=== PATIENT | male | born 1950 | race Caucasian/White ===

== ENCOUNTER 2016-09-03 07:50 | Inpatient (IN) ==
[2016-09-03] MEDS ORDERED: Acetaminophen 325 MG TABLET PO PRN (10:05)
[2016-09-03] MEDS ORDERED: Naloxone 0.4 MG/ML INJ IVP PRN (10:05)
[2016-09-03] MEDS ORDERED: Ondansetron ODT 4 MG TAB.RAPDIS SL PRN (10:05)
[2016-09-03 10:17] LABS: Hemoglobin 13.3 g/dL (12.9-16.9); Mean Corpuscular HGB Conc 33.3 g/dL (31.6-35.5); Mean Corpuscular Hemoglobin 30.2 pg (28.0-33.3); Mean Corpuscular Volume 90.7 fL (83.0-100.0); Mean Platelet Volume 9.4 fL (9.4-12.4); Platelet Count 306 K/mcL (140-400); Red Blood Count 4.41 M/mcL (4.19-5.50); Red Cell Distribution Width 12.4 % (11.5-14.5)
[2016-09-03 10:29] LABS: BUN/Creatinine Ratio 21 (6-26); Blood Urea Nitrogen 24 mg/dL (8-26); Calcium 9.8 mg/dL (8.6-10.8); Carbon Dioxide 29 mEq/L (19-29); Chloride 100 mEq/L (98-109); Glucose 107 mg/dL (70-99); Osmolality,Calculated 293 (280-300); Potassium 3.4 mEq/L (3.5-4.5); Sodium 139 mEq/L (136-145); eGFR For African Americans > 60 (> 60); eGFR For Non-African Americans > 60 (> 60)
--- NOTE | 2016-09-03 10:45 | History & Physical Report ---
Date of Encounter: 09/03/16 Time of Encounter: 09:30 24 Hour HP Update - Instructions Instructions: If the History and Physical is less than 30 days old and was completed prior to A.M. admission and or procedure and has NOT been updated on calendar day of procedure please complete this update prior to performing procedure. - Update Patient reports changes in Medical Condition: No Changes in examination, assessment, or condition: No Changes in Medication: No Preop tests/diagnostics Reviewed: Yes Additions to current History and Physical: Patient admitted for rhythmol initiation. - Pre-Operative Checklist Preoperative Checklist Indicated: No Prophylactic Antibiotic Ordered: No Home Medications Include Beta Jose: No Beta Jose Taken Today (Day of Surgery): No Beta Jose Taken Yesterday (Day Prior to Surgery): No Is VTE Prophylaxis Indicated?: NO
--- NOTE | 2016-09-03 10:49 | Event Note ---
Date of Encounter: 09/03/16 Time of Encounter: 09:30 - Cardiology Event Note Patient direct admission for rhythmol initiation for paroxysmal atrial fibrillation. Patient states he has not missed any eliquis for the past 30 days. Patient admits to missing eliquis from August 01- due to dental procedure. Patient reports he started back on eliquis on August 03 in the evening. Patient denies any medical history changes or medication changes since being seen in office. Stress test reviewed from 06/2014 with gated EF 62%, fixed basal to mid inferior defect with artifact. Stress negative for ischemia or infarct. Echo 2016 with LVEF 65%, mild concentric left ventricular hypertrophy, all cisneros with normal motion. ECG performed and patient currently sinus bradycardia, HR 53. QRS noted to be 101ms. Lab work reviewed, creatinine about basleine. Plan for patient to start rhythmol 150mg [id number]. Medication house checked with pharmacy and noted to be $28/month. Patient and state that the cost is affordable for them. Will start rhythmol, Will continue to monitor.
--- NOTE | 2016-09-03 16:14 | Electrocardiograph Report ---
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
[2016-09-03] MEDS: APIXABAN 5 MG TABLET PO SCH (20:49)
[2016-09-03] MEDS ORDERED: Venlafaxine XR (24 HR) 75 MG CAP.ER.24H PO SCH (21:00)
[2016-09-04 06:12] LABS: BUN/Creatinine Ratio 14 (6-26); Blood Urea Nitrogen 17 mg/dL (8-26); Calcium 9.2 mg/dL (8.6-10.8); Carbon Dioxide 33 mEq/L (19-29); Chloride 101 mEq/L (98-109); Glucose 98 mg/dL (70-99); Osmolality,Calculated 296 (280-300); Potassium 3.5 mEq/L (3.5-4.5); Sodium 142 mEq/L (136-145); eGFR For African Americans > 60 (> 60); eGFR For Non-African Americans 59 (> 60)
[2016-09-04] MEDS: APIXABAN 5 MG TABLET PO SCH ×2 (08:39→22:02)
[2016-09-04] MEDS: Multivit/Ca/Min/Fe/FA 1 TAB TABLET PO SCH (08:40)
[2016-09-04] MEDS: Losartan/HCTZ 50-12.5 TABLET PO SCH (08:40)
[2016-09-04] MEDS ORDERED: Diltiazem CD (24hr) 120 MG CAPSULE PO SCH (09:00)
--- NOTE | 2016-09-04 10:46 | Cardiology Consult Note ---
Date of Encounter: 09/04/16 Time of Encounter: 08:30 Assessment and Plan (1) Paroxysmal atrial fibrillation Current Visit: Yes Status: Chronic Per EP: -Known symptomatic PAF, follows with Dr.John Live. -Patient direct admission for rhythmol initiation. -Patient started on rhythmol 150mg [id number]. Has received 3 doses. -Patient on cardizem CD 120mg daily. -Patient anti-coagulated with eliquis. -[id number] score 2 (age and HTN). Has not missed any doses of eliquis in the past 30days. -Patient currently SR. Telemetry reviewed with average HR 74, sinus rhythm for previous 12 hours. -Pateint denies palpitations. -Will continue to monitor. (2) Encounter for monitoring anti-arrhythmic therapy Current Visit: Yes Status: Acute Per EP: -Patient started on rhythmol 150mg [id number]. Patient has received 3 total doses. -ECG yesterday with SB, HR 53. QRS 101ms. -ECG today SR, HR 73. QRS 109ms. -Will receive 6 doses by tomorrow morning. -ECG ordered for tomorrow morning. -Recommend continuation of rhythmol therapy. -Recommend checking ECG in am. IF QRS less than 120ms or less than 25% change from baseline, patient may be discharged tomorrow. -EP will sign off and will follow in outpatient setting. -General cardiology will follow while inpatient. Discussion w patient/family: The assessment and plan as outlined above was discussed with the patient and/or family members who expressed understanding and agreement. All questions were answered. Thank you for involving us in the care of your patient. Please call with any questions. Discussed and reviewed with Dr.John Live. History of Present Illness Consult date: 09/04/16 Requesting physician: Jose Marin Consult reason: PAF/ anti-arrythmic Chief complaint: anti arrythmic History of present illness: EP Consult: Mr. Patel is a 66 year old male with a relevant past medical history of HTN , hyperlipidemia, depression, and paroxysmal atrial fibrillation. Patient presented to [facility] yesterday for direct admission for anti-arrythmic initiation. Patient follows with Dr.John Live in cardiology office. Arrangements were made for patient to start rhythmol for paroxysmal atrial fibrillation. WHen patient was admitted, patient was in sinus rhyhthm. Patient states he can tell when he is in atrial fibrillation. Patient denies current chest pain, shortness of breath, or palpitations. Past Med Surg Social Fam HX - Past Medical History Attestation: Yes The following information was validated with the patient. Source: patient, old records reviewed, obtained from family Medical history: arthritis, atrial fibrillation, hyperlipidemia, hypertension Psychiatric history: anxiety, depression - Social History Smoking Status: Former smoker Smokeless Tobacco Status: No Alcohol use: none Drug use: none - Family History Mother Living Status: Age at : 63 Hx Family Cardiac Disorders: Yes Hx Family Endocrine Disorder: Yes Hx Family Musculoskeletal Disorders: Yes Medications and Allergies Apixaban [Eliquis] 5 mg PO BID 09/03/16 [History] Diltiazem CD (24hr) [Cardizem CD] 120 mg PO DAILY 09/03/16 [History] Losartan/HCTZ [Hyzaar 50-12.5 Tablet] 1 each PO DAILY 09/03/16 [History] Simvastatin [Zocor] 20 mg PO HS 09/03/16 [History] Venlafaxine HCl [Venlafaxine HCl ER] 75 mg PO DAILY 09/03/16 [History] Allergies Penicillins Allergy (Mild, Verified 09/03/16 09:26) Rash All Systems Review: A 10-system review of systems was performed and is negative for pertinent findings except as documented above in the HPI. - Cardiovascular Cardiovascular: as per HPI, irregular heart rhythm (Not currently irregular) Physical Examination Vital Signs, Last 4 Hours Temp Pulse Resp BP Pulse Ox 09/04/16 07:14 98.1 F 83 15 148/95 96 General: Conversant, No Apparent Distress HEENT: Atraumatic, Normocephaly, Mucus Membranes Moist Neck: No JVD, Normal carotid pulses Cardiac: Reg Rate and Rhythm, Normal S1 and S2, No Murmur Lungs: Normal Breath Sounds, No Wheeze, Rales, Rhonchi Neuro: Alert and responsive, No focal deficits noted Abdomen: Soft, Non-Tender Skin: No rashes noted on visualized skin Musculoskeletal: No Chest Wall Tenderness Extremities: No Clubbing, No Cyanosis, No Edema, Normal Pulses Results 09/03/16 10:07 09/04/16 04:49 Lab Results Active Medications Acetaminophen (Tylenol) 650 mg PO Q6HR PRN PRN Reason: Mild Pain (1-3) Stop: 03/05/17 10:06 Apixaban (Eliquis) 5 mg PO BID [facility] Stop: 03/05/17 21:01 Last Admin: 09/04/16 08:39 Dose: 5 mg Diltiazem HCl (Cardizem Cd) 120 mg PO DAILY [facility] Stop: 03/06/17 10:01 HCTZ/Losartan Potassium (Hyzaar 50/12.5) 1 each PO DAILY [facility]AY Stop: 03/06/17 09:01 Last Admin: 09/04/16 08:40 Dose: 1 each Multivitamins/Calcium (Thera M Plus) 1 tab PO DAILY RAY PRN Reason: Protocol Stop: 03/06/17 09:01 Last Admin: 09/04/16 08:40 Dose: 1 tab Naloxone HCl (Narcan) 0.4 mg IVP Q2MIN PRN PRN Reason: Opioid Reversal Stop: 03/05/17 10:06 Ondansetron HCl (Zofran Odt) 4 mg SL Q8HR PRN PRN Reason: Nausea And Vomiting Stop: 03/05/17 10:06 Propafenone HCl (Rhythmol) 150 mg PO Q8HR RAY Stop: 03/05/17 14:01 Last Admin: 09/04/16 08:38 Dose: 150 mg Simvastatin (Zocor) 10 mg PO HS RAY PRN Reason: Protocol Stop: 03/05/17 21:01 Last Admin: 09/03/16 20:48 Dose: 10 mg Venlafaxine HCl (Effexor Xr) 75 mg PO HS [facility] Stop: 03/05/17 21:01 Laboratory Tests 09/03/16 09/03/16 09/04/16 10:07 10:07 04:49 Hgb 13.3 Potassium 3.4 L 3.5 Creatinine 1.16 1.23 - Imaging and Cardiology Stress Test: report reviewed Echo: report reviewed - EKG Interpretation EKG results cardiology: personally reviewed (ECG today with sinus rhythm, HR 73. QRS 109ms.), other (Telemetry reviewed with average HR 74, sinus rhythm. PACs noted.) Consult Discharge Plan - Plan Referrals: Quentin Taylor DO [Primary Care Provider] - 09/12/16 10:00 am
[2016-09-04] MEDS: Diltiazem CD (24hr) 120 MG CAPSULE PO SCH (12:03)
[2016-09-04] MEDS ORDERED: Venlafaxine XR (24 HR) 75 MG CAP.ER.24H PO SCH (21:00)
[2016-09-05 07:13] VITALS: BP 122/92
--- NOTE | 2016-09-05 09:13 | Discharge Summary ---
Date of Encounter: 09/05/16 Time of Encounter: 09:00 - Discharge Diagnosis (1) Paroxysmal atrial fibrillation Priority: Primary Status: Chronic Comments: Known PAF. Admisison for rhythmol inititation. (2) Encounter for monitoring anti-arrhythmic therapy Priority: Secondary Status: Acute Comments: Admission for rhythmol initiation. - Discharge Medications Prescriptions: Propafenone [Rhythmol] 150 mg PO Q8HR #90 tablet Simvastatin [Zocor] 10 mg PO HS #30 tablet Home Medications: Apixaban [Eliquis] 5 mg PO BID 09/03/16 [History] Diltiazem CD (24hr) [Cardizem CD] 120 mg PO DAILY 09/03/16 [History] Losartan/HCTZ [Hyzaar 50-12.5 Tablet] 1 each PO DAILY 09/03/16 [History] Venlafaxine HCl [Venlafaxine HCl ER] 75 mg PO DAILY 09/03/16 [History] Multivitamin [One Daily Essential] 1 each PO DAILY 09/04/16 [History] Propafenone [Rhythmol] 150 mg PO Q8HR #90 tablet 09/05/16 [Rx] Simvastatin [Zocor] 10 mg PO HS #30 tablet 09/05/16 [Rx] Allergies/Adverse Reactions: Allergies Penicillins Allergy (Mild, Verified 09/03/16 09:26) Rash Procedures/tests Complete & Pending: Procedures Performed prior 72 hours Category Date Time Status ECG 12 lead ECG [ECG] AM 0600 Y 09/04/16 06:00 Completed ECG 12 lead ECG [ECG] AM 0600 Y 09/05/16 06:00 Ordered ECG 12 lead ECG [ECG] AM 0600 Y 09/06/16 06:00 Ordered ECG 12 lead ECG [ECG] Stat Y 09/03/16 09:22 Completed Date of admission: 09/03/16 08:46 Primary care physician: Quentin Taylor Consults: 09/04/16 10:49 Consult to Electrophysiology (EP) [CONS] Routine Consulting Provider: Electrophysiology Rashmi Reason for Consult: antiarrhythmic therapy initiation and monitoring. Call Completed: Yes Discharging clinician: Ewa Stack Anticipated date of discharge: 09/05/16 - Patient Status Disposition: Home, Self-Care Condition: Good Functional capacity at discharge: independent ambulation Overall status at discharge: patient is back to baseline - Discharge Instructions Follow Up With: Quentin Taylor DO [Primary Care Provider] - 09/12/16 10:00 am - Diet and Activity Activity: increase activity as tolerated Diet: advance to your usual diet - Hospital Course Hospital course: Mr. Patel is a 66 year old male with known history of paroxysmal atrial fibrillation. Patient admitted for rhythmol initiation. Patient has received 6 total doses of rhythmol. ECG today with sinus bradycardia, HR 57. QRS 101 ms. Telemetry reviewed with average HR previous 12 hours noted to be 66. No significant events noted. Patient has remained sinus rhythm since admission. Patient is on eliquis for anticoagulation. Patient is being prepped for discharge home today in stable condition. - Time Spent with Patient Total time spent providing and/or coordinating discharge services: Less than 30 minutes Physical Examination Vital Signs, Last 4 Hours Temp Pulse Resp BP Pulse Ox 09/05/16 07:00 98.2 F 65 17 122/92 97 General: Conversant, No Apparent Distress HEENT: Atraumatic, Normocephaly, Mucus Membranes Moist Neck: No JVD, Normal carotid pulses Cardiac: Reg Rate and Rhythm, Normal S1 and S2, No Murmur Lungs: Normal Breath Sounds, No Wheeze, Rales, Rhonchi Neuro: Alert and responsive, No focal deficits noted Abdomen: Soft, Non-Tender Skin: No rashes noted on visualized skin Musculoskeletal: No Chest Wall Tenderness Extremities: No Clubbing, No Cyanosis, No Edema, Normal Pulses - VTE Reasons for not Prescribing Prophylaxis: Not indicated-Anticoagulated or INR therapeutic Documentation of Mechanical Device: Intermittent pneumatic compression device
[2016-09-05] MEDS: Multivit/Ca/Min/Fe/FA 1 TAB TABLET PO SCH (09:27)
[2016-09-05] MEDS: Losartan/HCTZ 50-12.5 TABLET PO SCH (09:27)
[2016-09-05] MEDS: APIXABAN 5 MG TABLET PO SCH (09:27)
[2016-09-05] MEDS: Diltiazem CD (24hr) 120 MG CAPSULE PO SCH (09:28)
--- NOTE | 2016-09-05 15:38 | Electrocardiograph Report ---
[address] [place], [place] [address] Test Date: 2016-09-05 Pat Name: Uli Patel Department: 111 Room: 2NE27 Gender: M [employer] Real Estate: JOANIE : 1950 Requested By: Ewa Stack Order Number: [id number] Reading MD: Lauri Patel MD Measurements Intervals [place] Rate: 57 P: 57 UT: 173 QRS: -4 QRSD: 101 T: 7 QT: 428 QTc: 422 Interpretive Statements SINUS BRADYCARDIA Electronically Signed On 09-05-2016 15:37:27 EDT by Lauri Patel MD
== END 2016-09-05 11:23 | disposition home or self-care (01) | DRG 310 ==
LOC: 2NENU 08:46
PROVIDERS: ADMIT Internal Medicine Cardiovascular Disease; ATTEND Internal Medicine Cardiovascular Disease

== ENCOUNTER 2018-11-23 09:55 | Inpatient (IN) ==
[2018-11-23] MEDS ORDERED: Aspirin 81 MG TAB.CHEW PO ONE (10:01)
[2018-11-23 10:25] LABS: Basophils % 0.5 %; Eosinophils # 0.4 K/mcL (0.0-0.6); Eosinophils % 4.7 %; Hematocrit 41.5 % (37.5-50.1); Hemoglobin 13.6 g/dL (12.9-16.9); Immature Granulocytes % 0.1 % (0-4); Lymphocytes # 1.3 K/mcL (0.6-4.6); Lymphocytes % 15.4 %; Mean Corpuscular HGB Conc 32.8 g/dL (31.6-35.5); Mean Corpuscular Hemoglobin 30.5 pg (28.0-33.3); Mean Platelet Volume 9.8 fL (9.4-12.4); Monocytes # 1.2 K/mcL (0.0-1.3); Monocytes % 13.5 %; Neutrophils # 5.6 K/mcL (1.6-8.9); Platelet Count 303 K/mcL (140-400); Red Blood Count 4.46 M/mcL (4.19-5.50); Segmented Neutrophils % 65.8 %; White Blood Count 8.5 K/mcL (4.3-11.1)
[2018-11-23 10:50] LABS: BUN/Creatinine Ratio 14 (6-26); Blood Urea Nitrogen 16 mg/dL (8-23); Calcium 9.3 mg/dL (8.6-10.3); Carbon Dioxide 27 mEq/L (23-29); Chloride 103 mEq/L (98-107); Glucose 111 mg/dL (70-105); Osmolality,Calculated 286 (280-300); Potassium 4.1 mEq/L (3.5-5.1); Sodium 137 mEq/L (136-145); Troponin I < 0.03 ng/mL (< 0.04); eGFR For African Americans > 60 (> 60); eGFR For Non-African Americans > 60 (> 60)
[2018-11-23] MEDS ORDERED: Naloxone 0.4 MG/ML INJ IVP PRN (13:41)
[2018-11-23] MEDS ORDERED: Ondansetron 4 MG/2 ML VIAL IVP PRN (13:41)
[2018-11-23] MEDS ORDERED: Acetaminophen 325 MG TABLET PO PRN (13:41)
[2018-11-23] MEDS: Nitroglycerin 0.4 MG TAB.SUBL SL PRN (17:18)
[2018-11-23] MEDS: Venlafaxine XR (24 HR) 75 MG CAP.ER.24H PO SCH (20:41)
[2018-11-23] MEDS: Apixaban 5 MG TABLET PO SCH (20:41)
[2018-11-23 22:05] LABS: Bilirubin,Urine Negative (Negative); Blood,Urine Negative (Negative); Clarity,Urine Clear (Clear); Color,Urine Yellow (Yellow); Glucose,Urine (UA) Normal (Normal); Ketones,Urine Negative (Negative); Leukocyte Esterase,Urine Negative (Negative); Nitrite,Urine Negative (Negative); PH,Urine 6.5 pH Units (5.0-8.0); Protein,Urine Negative (Neg-Trace); Specific Gravity,Urine 1.009 (1.010-1.025); Urobilinogen,Urine Normal (Normal)
[2018-11-23 22:17] LABS: Amphetamine Screen,Urine Negative ng/mL (Cutoff=1000); Barbiturate Screen,Urine Negative ng/mL (Cutoff=200); Benzodiazepines Screen,Urine Negative ng/mL (Cutoff=200); Cannabinoid Screen,Urine Negative ng/mL (Cutoff = 50); Cocaine Screen,Urine Negative ng/mL (Cutoff= 300); Opiate Screen,Urine Negative ng/mL (Cutoff=300); Phencyclidine Screen,Urine Negative ng/mL (Cutoff=25)
[2018-11-24 02:25] LABS: Basophils # 0.1 K/mcL (0.0-0.2); Basophils % 0.6 %; Eosinophils # 0.5 K/mcL (0.0-0.6); Eosinophils % 5.6 %; Hematocrit 40.7 % (37.5-50.1); Hemoglobin 13.6 g/dL (12.9-16.9); Immature Granulocytes % 0.4 % (0-4); Lymphocytes # 1.5 K/mcL (0.6-4.6); Lymphocytes % 18.7 %; Mean Corpuscular HGB Conc 33.4 g/dL (31.6-35.5); Mean Corpuscular Volume 92.7 fL (83.0-100.0); Mean Platelet Volume 9.8 fL (9.4-12.4); Monocytes # 0.9 K/mcL (0.0-1.3); Monocytes % 11.3 %; Neutrophils # 5.2 K/mcL (1.6-8.9); Platelet Count 301 K/mcL (140-400); Red Blood Count 4.39 M/mcL (4.19-5.50); Red Cell Distribution Width 12.9 % (11.5-14.5); Segmented Neutrophils % 63.4 %; White Blood Count 8.2 K/mcL (4.3-11.1)
[2018-11-24 02:32] LABS: INR 1.3; Prothrombin Time 14.2 Seconds (9.4-12.1)
[2018-11-24 02:35] LABS: Activated Partial Thrombo Time 33.9 Seconds (26.0-36.0)
[2018-11-24 02:38] LABS: Alanine Aminotransferase 35 Units/L (7-52); Albumin/Globulin Ratio 1.3 (1.1-2.2); Alkaline Phosphatase 77 Units/L (34-104); Aspartate Amino Transferase 30 Units/L (13-39); BUN/Creatinine Ratio 12 (6-26); Bilirubin,Total 0.5 mg/dL (0.3-1.0); Blood Urea Nitrogen 14 mg/dL (8-23); Calcium 9.1 mg/dL (8.6-10.3); Carbon Dioxide 26 mEq/L (23-29); Chloride 104 mEq/L (98-107); Chol/HDL Ratio 4.2 (0-4.9); Cholesterol 151 mg/dL (< 200); Globulin 3.2 g/dL (2.4-3.5); Glucose 149 mg/dL (70-105); HDL Cholesterol 36 mg/dL (40-59); LDL Cholesterol,Calculated 91 mg/dL (0-99); Magnesium 2.3 mg/dL (1.6-2.6); Osmolality,Calculated 289 (280-300); Phosphorous 3.5 mg/dL (2.7-4.5); Potassium 3.8 mEq/L (3.5-5.1); Sodium 138 mEq/L (136-145); Total Protein 7.2 g/dL (6.4-8.9); Triglycerides 120 mg/dL (< 150); eGFR For African Americans > 60 (> 60); eGFR For Non-African Americans > 60 (> 60)
[2018-11-24] MEDS ORDERED: Regadenoson 0.4 MG/5 ML SYRINGE IVP ONE (07:34)
[2018-11-24] MEDS ORDERED: Venlafaxine XR (24 HR) 75 MG CAP.ER.24H PO SCH (09:00)
[2018-11-24] MEDS ORDERED: DilTIAZem CD (24hr) 120 MG CAP.ER.24H PO SCH (09:00)
[2018-11-24] MEDS: Apixaban 5 MG TABLET PO SCH (09:12)
[2018-11-24] MEDS: Multivit/Ca/Min/Fe/FA 1 TAB TABLET PO SCH (09:12)
[2018-11-24] MEDS: Nitroglycerin 0.4 MG TAB.SUBL SL PRN (09:58)
[2018-11-24] MEDS: Venlafaxine XR (24 HR) 75 MG CAP.ER.24H PO SCH (20:31)
[2018-11-25] MEDS: Multivit/Ca/Min/Fe/FA 1 TAB TABLET PO SCH (09:00)
[2018-11-25] MEDS ORDERED: *HR* Heparin 10,000 UNIT/10 ML VIAL ONE (15:56)
[2018-11-25] MEDS ORDERED: Heparin 1,000 UNITS/500 mL 500 ML ONE (15:56)
[2018-11-25] MEDS ORDERED: 0.9 % Sodium Chloride 1,000 ML ONE (15:56)
[2018-11-25] MEDS ORDERED: Iopamidol 125 ML INFUS..BTL ONE (15:56)
[2018-11-25] MEDS ORDERED: Nitroglycerin 1,000 MCG/10 ML VIAL IV ONE (15:56)
[2018-11-25] MEDS ORDERED: *HR* Midazolam HCl 2 MG/2 ML VIAL ONE (16:35)
[2018-11-25] MEDS ORDERED: *HR* FentaNYL (PF) 100 MCG/2 ML VIAL ONE (16:35)
[2018-11-25] MEDS: Venlafaxine XR (24 HR) 75 MG CAP.ER.24H PO SCH (20:28)
[2018-11-26 00:17] VITALS: BP 122/72
== END 2018-11-25 23:41 | disposition critical access hospital (66) | DRG 287 ==
LOC: EMEROOARM 09:55 → 3BNU 09:55
PROVIDERS: ADMIT Internal Medicine Nephrology; ATTEND Internal Medicine Nephrology

== ENCOUNTER 2019-09-22 12:17 | Inpatient (IN) ==
[2019-09-28 10:53] LABS: BUN/Creatinine Ratio 21 (6-26); Blood Urea Nitrogen 21 mg/dL (8-23); Calcium 9.3 mg/dL (8.6-10.3); Carbon Dioxide 29 mEq/L (23-29); Chloride 102 mEq/L (98-107); Glucose 107 mg/dL (70-105); Osmolality,Calculated 289 (280-300); Potassium 3.8 mEq/L (3.5-5.1); Sodium 138 mEq/L (136-145); eGFR For African Americans > 60 (> 60); eGFR For Non-African Americans > 60 (> 60)
[2019-09-28] MEDS ORDERED: Nitroglycerin 0.4 MG TAB.SUBL SL PRN (11:33)
[2019-09-28] MEDS: carvediloL 6.25 MG TABLET PO SCH (16:25)
[2019-09-28] MEDS ORDERED: carvediloL 6.25 MG TABLET PO SCH (17:00)
[2019-09-28] MEDS: Apixaban 5 MG TABLET PO SCH (19:42)
[2019-09-28] MEDS: Venlafaxine XR (24 HR) 75 MG CAP.ER.24H PO SCH (21:14)
[2019-09-29] MEDS: Multivit/Ca/Min/Fe/FA 1 TAB TABLET PO SCH (08:01)
[2019-09-29] MEDS: carvediloL 6.25 MG TABLET PO SCH ×2 (08:01→16:30)
[2019-09-29] MEDS: Apixaban 5 MG TABLET PO SCH ×2 (08:02→21:16)
[2019-09-29] MEDS: Furosemide 40 MG TABLET PO SCH (08:02)
[2019-09-29] MEDS: Aspirin Enteric Coated 81 MG Tablet PO SCH (08:02)
[2019-09-29] MEDS: Venlafaxine XR (24 HR) 75 MG CAP.ER.24H PO SCH (21:16)
[2019-09-30 07:21] VITALS: BP 153/85
[2019-09-30] MEDS: Multivit/Ca/Min/Fe/FA 1 TAB TABLET PO SCH (08:29)
[2019-09-30] MEDS: carvediloL 6.25 MG TABLET PO SCH (08:29)
[2019-09-30] MEDS: Furosemide 40 MG TABLET PO SCH (08:29)
[2019-09-30] MEDS: Apixaban 5 MG TABLET PO SCH (08:29)
[2019-09-30] MEDS: Aspirin Enteric Coated 81 MG Tablet PO SCH (08:29)
== END 2019-09-30 14:15 | disposition home or self-care (01) | DRG 310 ==
LOC: 2NNU
PROVIDERS: ADMIT Internal Medicine Clinical Cardiac Electrophysiology; ATTEND Internal Medicine Clinical Cardiac Electrophysiology

== ENCOUNTER 2020-10-27 10:48 | Inpatient (IN) ==
[2020-10-27] MEDS ORDERED: Ondansetron 4 MG/2 ML VIAL IVP ONE (12:20)
[2020-10-27] MEDS ORDERED: *HR* FentaNYL (PF) 100 MCG/2 ML VIAL IVP ONE (12:20)
[2020-10-27 12:22] LABS: Basophils % 0.3 %; Eosinophils # 0.2 K/mcL (0.0-0.6); Eosinophils % 1.9 %; Hematocrit 39.8 % (37.5-50.1); Hemoglobin 13.4 g/dL (12.9-16.9); Immature Granulocytes % 0.3 % (0-4); Lymphocytes # 0.9 K/mcL (0.6-4.6); Lymphocytes % 8.2 %; Mean Corpuscular HGB Conc 33.7 g/dL (31.6-35.5); Mean Corpuscular Hemoglobin 31.2 pg (28.0-33.3); Mean Corpuscular Volume 92.8 fL (83.0-100.0); Mean Platelet Volume 10.3 fL (9.4-12.4); Monocytes % 8.6 %; Neutrophils # 9.2 K/mcL (1.6-8.9); Platelet Count 301 K/mcL (140-400); Red Blood Count 4.29 M/mcL (4.19-5.50); Red Cell Distribution Width 12.4 % (11.5-14.5); Segmented Neutrophils % 80.7 %; White Blood Count 11.5 K/mcL (4.3-11.1)
[2020-10-27 12:32] LABS: Alanine Aminotransferase 353 Units/L (7-52); Albumin 4.1 g/dL (3.5-5.7); Albumin/Globulin Ratio 1.2 (1.1-2.2); Alkaline Phosphatase 261 Units/L (34-104); Aspartate Amino Transferase 389 Units/L (13-39); BUN/Creatinine Ratio 18 (6-26); Bilirubin,Total 2.3 mg/dL (0.3-1.0); Blood Urea Nitrogen 17 mg/dL (8-23); Calcium 9.3 mg/dL (8.6-10.3); Carbon Dioxide 28 mEq/L (23-29); Chloride 105 mEq/L (98-107); Globulin 3.3 g/dL (2.4-3.5); Glucose 131 mg/dL (70-105); Lipase 55 Units/L (11-82); Osmolality,Calculated 293 (280-300); Potassium 3.7 mEq/L (3.5-5.1); Sodium 140 mEq/L (136-145); Total Protein 7.4 g/dL (6.4-8.9); eGFR For African Americans > 60 (> 60); eGFR For Non-African Americans > 60 (> 60)
[2020-10-27] MEDS ORDERED: *HR* HYDROmorphone (PF) 1 MG/ML SYRINGE IVP ONE (13:37)
[2020-10-27 13:44] LABS: Bilirubin,Urine Small (Negative); Blood,Urine Negative (Negative); Clarity,Urine Clear (Clear); Color,Urine Yellow (Yellow); Glucose,Urine (UA) Normal (Normal); Ketones,Urine Negative (Negative); Leukocyte Esterase,Urine Negative (Negative); Nitrite,Urine Negative (Negative); PH,Urine 6.5 pH Units (5.0-8.0); Protein,Urine Trace mg/dL (Neg-Trace); Specific Gravity,Urine 1.026 (1.010-1.025)
[2020-10-27] MEDS ORDERED: Acetaminophen 325 MG TABLET PO PRN (16:29)
[2020-10-27] MEDS ORDERED: Ondansetron 4 MG/2 ML VIAL IVP PRN (16:29)
[2020-10-27] MEDS ORDERED: Naloxone 0.4 MG/ML INJ IVP PRN (16:29)
[2020-10-27] MEDS ORDERED: *HR* OxyCODONE Immed Rel 5 MG TABLET PO PRN (16:29)
[2020-10-27] MEDS ORDERED: *HR* HYDROcodone/Acet 5/325 mg TABLET PO PRN (16:29)
[2020-10-27] MEDS: Pantoprazole 40 MG VIAL IVP SCH (19:09)
[2020-10-28 03:18] LABS: Basophils % 0.1 %; Hematocrit 39.6 % (37.5-50.1); Hemoglobin 12.8 g/dL (12.9-16.9); Immature Granulocytes % 0.7 % (0-4); Lymphocytes # 0.5 K/mcL (0.6-4.6); Lymphocytes % 2.4 %; Mean Corpuscular HGB Conc 32.3 g/dL (31.6-35.5); Mean Corpuscular Hemoglobin 30.5 pg (28.0-33.3); Mean Corpuscular Volume 94.3 fL (83.0-100.0); Mean Platelet Volume 10.6 fL (9.4-12.4); Monocytes # 1.5 K/mcL (0.0-1.3); Monocytes % 7.2 %; Neutrophils # 18.8 K/mcL (1.6-8.9); Platelet Count 288 K/mcL (140-400); Red Cell Distribution Width 12.8 % (11.5-14.5); Segmented Neutrophils % 89.6 %
[2020-10-28 03:39] LABS: Alanine Aminotransferase 464 Units/L (7-52); Albumin 3.9 g/dL (3.5-5.7); Albumin/Globulin Ratio 1.4 (1.1-2.2); Alkaline Phosphatase 289 Units/L (34-104); Aspartate Amino Transferase 425 Units/L (13-39); BUN/Creatinine Ratio 15 (6-26); Bilirubin,Direct 3.7 mg/dL (0.0-0.2); Bilirubin,Indirect 1.4 mg/dL (0.0-1.0); Bilirubin,Total 5.1 mg/dL (0.3-1.0); Blood Urea Nitrogen 18 mg/dL (8-23); Calcium 8.9 mg/dL (8.6-10.3); Carbon Dioxide 25 mEq/L (23-29); Chloride 103 mEq/L (98-107); Globulin 2.8 g/dL (2.4-3.5); Glucose 123 mg/dL (70-105); Magnesium 1.9 mg/dL (1.6-2.6); Osmolality,Calculated 291 (280-300); Potassium 3.5 mEq/L (3.5-5.1); Sodium 139 mEq/L (136-145); Total Protein 6.7 g/dL (6.4-8.9); eGFR For African Americans > 60 (> 60); eGFR For Non-African Americans 59 (> 60)
[2020-10-28] MEDS: Pantoprazole 40 MG VIAL IVP SCH (06:01)
[2020-10-28] MEDS ORDERED: *HR* FentaNYL (PF) 100 MCG/2 ML VIAL ONE (13:52)
[2020-10-28] MEDS ORDERED: *HR* Propofol 200 MG/20 ML VIAL IVP ONE (13:52)
[2020-10-28] MEDS ORDERED: EPHEDrine 50 MG/ML VIAL ONE (14:31)
[2020-10-28] MEDS ORDERED: Ondansetron 4 MG/2 ML VIAL ONE (14:52)
[2020-10-28] MEDS ORDERED: Lidocaine HCL 4 ML Topical Solution (Laryng-O-Jet Kit Sterile Pak) TP ONE (14:52)
[2020-10-28] MEDS ORDERED: *HR* Succinylcholine 200 MG/10 ML VIAL IVP ONE (14:52)
[2020-10-28] MEDS ORDERED: Lidocaine -MPF 2% 5 ML VIAL ONE (14:52)
[2020-10-28] MEDS ORDERED: Indomethacin 50 MG SUPP.RECT RC ONE (16:23)
[2020-10-28] MEDS ORDERED: Nitroglycerin 0.4 MG TAB.SUBL SL PRN (17:58)
[2020-10-28] MEDS ORDERED: Piperacillin/Tazobactam 3.375 GM in 0.9 % Sodium Chloride Mini Bag 100 ML IVPB SCH (20:11)
[2020-10-28] MEDS: *HR* HYDROmorphone (PF) 1 MG/ML SYRINGE IVP PRN (20:45)
[2020-10-28] MEDS: Piperacillin/Tazobactam 3.375 GM in 0.9 % Sodium Chloride Mini Bag 100 ML IVPB SCH (21:31)
[2020-10-28] MEDS ORDERED: 0.9 % Sodium Chloride 1,000 ML IVC SCH (22:45)
[2020-10-29 00:41] LABS: Hematocrit 38.1 % (37.5-50.1); Hemoglobin 12.4 g/dL (12.9-16.9); Mean Corpuscular HGB Conc 32.5 g/dL (31.6-35.5); Mean Corpuscular Hemoglobin 30.7 pg (28.0-33.3); Mean Corpuscular Volume 94.3 fL (83.0-100.0); Mean Platelet Volume 10.6 fL (9.4-12.4); Platelet Count 245 K/mcL (140-400); Red Blood Count 4.04 M/mcL (4.19-5.50); White Blood Count 12.4 K/mcL (4.3-11.1)
[2020-10-29 00:55] LABS: Albumin 3.5 g/dL (3.5-5.7); Albumin/Globulin Ratio 1.1 (1.1-2.2); Bilirubin,Direct 4.1 mg/dL (0.0-0.2); Bilirubin,Indirect 1.4 mg/dL (0.0-1.0); Bilirubin,Total 5.5 mg/dL (0.3-1.0); Calcium 8.4 mg/dL (8.6-10.3); Globulin 3.1 g/dL (2.4-3.5); Potassium 4.1 mEq/L (3.5-5.1); Total Protein 6.6 g/dL (6.4-8.9)
[2020-10-29] MEDS: *HR* HYDROmorphone (PF) 1 MG/ML SYRINGE IVP PRN (01:00)
[2020-10-29] MEDS: Piperacillin/Tazobactam 3.375 GM in 0.9 % Sodium Chloride Mini Bag 100 ML IVPB SCH ×3 (05:30→20:58)
[2020-10-29] MEDS ORDERED: Venlafaxine XR (24 HR) 75 MG CAP.ER.24H PO SCH (09:00)
[2020-10-29] MEDS: Furosemide 40 MG TABLET PO SCH (09:05)
[2020-10-29] MEDS: carvediloL 6.25 MG TABLET PO SCH ×2 (09:05→17:59)
[2020-10-29] MEDS: Aspirin Enteric Coated 81 MG Tablet PO SCH (09:05)
[2020-10-29] MEDS ORDERED: MetroNIDAZOLE 500 MG/100 ML 500 MG/100 ML BAG IVPB SCH (16:00)
[2020-10-29] MEDS: Simethicone 80 MG TAB.CHEW PO PRN (18:41)
[2020-10-29] MEDS: Sennosides/Docusate Sodium TABLET PO SCH (21:03)
[2020-10-29] MEDS: Venlafaxine XR (24 HR) 75 MG CAP.ER.24H PO SCH (21:03)
[2020-10-29] MEDS: Apixaban 5 MG TABLET PO SCH (21:03)
[2020-10-30 01:06] LABS: Hematocrit 35.7 % (37.5-50.1); Mean Corpuscular HGB Conc 33.6 g/dL (31.6-35.5); Mean Corpuscular Hemoglobin 31.7 pg (28.0-33.3); Mean Corpuscular Volume 94.2 fL (83.0-100.0); Mean Platelet Volume 10.5 fL (9.4-12.4); Platelet Count 258 K/mcL (140-400); Red Blood Count 3.79 M/mcL (4.19-5.50); Red Cell Distribution Width 13.1 % (11.5-14.5); White Blood Count 15.1 K/mcL (4.3-11.1)
[2020-10-30 01:28] LABS: Alanine Aminotransferase 249 Units/L (7-52); Albumin 3.5 g/dL (3.5-5.7); Albumin/Globulin Ratio 1.1 (1.1-2.2); Alkaline Phosphatase 270 Units/L (34-104); Aspartate Amino Transferase 170 Units/L (13-39); BUN/Creatinine Ratio 21 (6-26); Bilirubin,Direct 1.3 mg/dL (0.0-0.2); Bilirubin,Indirect 1.3 mg/dL (0.0-1.0); Bilirubin,Total 2.6 mg/dL (0.3-1.0); Blood Urea Nitrogen 26 mg/dL (8-23); Calcium 8.3 mg/dL (8.6-10.3); Carbon Dioxide 27 mEq/L (23-29); Chloride 100 mEq/L (98-107); Globulin 3.2 g/dL (2.4-3.5); Glucose 148 mg/dL (70-105); Osmolality,Calculated 288 (280-300); Sodium 135 mEq/L (136-145); Total Protein 6.7 g/dL (6.4-8.9); eGFR For African Americans > 60 (> 60); eGFR For Non-African Americans 57 (> 60)
[2020-10-30] MEDS: Simethicone 80 MG TAB.CHEW PO PRN ×4 (02:12→21:24)
[2020-10-30] MEDS: Piperacillin/Tazobactam 3.375 GM in 0.9 % Sodium Chloride Mini Bag 100 ML IVPB SCH ×3 (05:32→21:24)
[2020-10-30] MEDS: carvediloL 6.25 MG TABLET PO SCH ×2 (08:56→17:19)
[2020-10-30] MEDS: Aspirin Enteric Coated 81 MG Tablet PO SCH (08:57)
[2020-10-30] MEDS: Furosemide 40 MG TABLET PO SCH (08:57)
[2020-10-30] MEDS: Apixaban 5 MG TABLET PO SCH ×2 (08:57→20:14)
[2020-10-30] MEDS: Sennosides/Docusate Sodium TABLET PO SCH ×2 (09:47→20:14)
[2020-10-30] MEDS ORDERED: Isovue-370 500 ML BOTTLE PO ONE (10:31)
[2020-10-30] MEDS ORDERED: Isovue-370 500 ML BOTTLE IVP ONE (10:31)
[2020-10-30] MEDS: 0.9 % Sodium Chloride 1,000 ML IVC SCH (17:43)
[2020-10-30] MEDS: Venlafaxine XR (24 HR) 75 MG CAP.ER.24H PO SCH (20:15)
[2020-10-30] MEDS ORDERED: Piperacillin/Tazobactam 3.375 GM VIAL ONE (20:51)
[2020-10-30] MEDS: Doxycycline 100 MG in 0.9 % Sodium Chloride Mini Bag 100 ML IVPB SCH (21:23)
[2020-10-31] MEDS: Piperacillin/Tazobactam 3.375 GM in 0.9 % Sodium Chloride Mini Bag 100 ML IVPB SCH ×3 (05:19→23:07)
[2020-10-31] MEDS: Doxycycline 100 MG in 0.9 % Sodium Chloride Mini Bag 100 ML IVPB SCH ×2 (05:19→18:13)
[2020-10-31] MEDS: Simethicone 80 MG TAB.CHEW PO PRN ×2 (05:19→17:15)
[2020-10-31] MEDS: 0.9 % Sodium Chloride 1,000 ML IVC SCH (05:20)
[2020-10-31] MEDS: Sennosides/Docusate Sodium TABLET PO SCH ×2 (08:18→23:07)
[2020-10-31] MEDS: Aspirin Enteric Coated 81 MG Tablet PO SCH (08:18)
[2020-10-31] MEDS: carvediloL 6.25 MG TABLET PO SCH ×2 (08:18→17:12)
[2020-10-31] MEDS: Apixaban 5 MG TABLET PO SCH ×2 (08:19→21:16)
[2020-10-31] MEDS: Furosemide 40 MG TABLET PO SCH (08:19)
[2020-10-31 09:44] LABS: Hematocrit 36.3 % (37.5-50.1); Hemoglobin 11.6 g/dL (12.9-16.9); Mean Corpuscular Hemoglobin 30.3 pg (28.0-33.3); Mean Corpuscular Volume 94.8 fL (83.0-100.0); Mean Platelet Volume 10.8 fL (9.4-12.4); Platelet Count 231 K/mcL (140-400); Red Blood Count 3.83 M/mcL (4.19-5.50); Red Cell Distribution Width 13.3 % (11.5-14.5); White Blood Count 11.2 K/mcL (4.3-11.1)
[2020-10-31 10:10] LABS: Blood Urea Nitrogen 14 mg/dL (8-23); Calcium 8.4 mg/dL (8.6-10.3); Carbon Dioxide 29 mEq/L (23-29); Chloride 100 mEq/L (98-107); Glucose 110 mg/dL (70-105); Osmolality,Calculated 283 (280-300); Potassium 3.5 mEq/L (3.5-5.1); Sodium 136 mEq/L (136-145)
[2020-10-31 10:19] LABS: BUN/Creatinine Ratio 15 (6-26); eGFR For African Americans > 60 (> 60); eGFR For Non-African Americans > 60 (> 60)
[2020-10-31] MEDS: Venlafaxine XR (24 HR) 75 MG CAP.ER.24H PO SCH (21:16)
[2020-11-01] MEDS: Doxycycline 100 MG in 0.9 % Sodium Chloride Mini Bag 100 ML IVPB SCH ×2 (06:13→18:13)
[2020-11-01] MEDS: Sennosides/Docusate Sodium TABLET PO SCH ×2 (07:44→20:01)
[2020-11-01] MEDS: Aspirin Enteric Coated 81 MG Tablet PO SCH (07:44)
[2020-11-01] MEDS: Apixaban 5 MG TABLET PO SCH ×2 (07:44→20:00)
[2020-11-01] MEDS: carvediloL 6.25 MG TABLET PO SCH ×2 (07:44→16:31)
[2020-11-01] MEDS: Furosemide 40 MG TABLET PO SCH (07:44)
[2020-11-01] MEDS: Piperacillin/Tazobactam 3.375 GM in 0.9 % Sodium Chloride Mini Bag 100 ML IVPB SCH ×3 (08:34→23:54)
[2020-11-01 11:27] LABS: Hematocrit 34.6 % (37.5-50.1); Hemoglobin 11.9 g/dL (12.9-16.9); Mean Corpuscular HGB Conc 34.4 g/dL (31.6-35.5); Mean Corpuscular Hemoglobin 31.3 pg (28.0-33.3); Mean Corpuscular Volume 91.1 fL (83.0-100.0); Mean Platelet Volume 10.5 fL (9.4-12.4); Platelet Count 248 K/mcL (140-400)
[2020-11-01 11:56] LABS: BUN/Creatinine Ratio 15 (6-26); Blood Urea Nitrogen 15 mg/dL (8-23); Calcium 8.5 mg/dL (8.6-10.3); Carbon Dioxide 27 mEq/L (23-29); Chloride 99 mEq/L (98-107); Glucose 148 mg/dL (70-105); Osmolality,Calculated 284 (280-300); Potassium 3.3 mEq/L (3.5-5.1); Sodium 135 mEq/L (136-145); eGFR For African Americans > 60 (> 60); eGFR For Non-African Americans > 60 (> 60)
[2020-11-01] MEDS: Simethicone 80 MG TAB.CHEW PO PRN ×2 (12:45→20:09)
[2020-11-01] MEDS: Venlafaxine XR (24 HR) 75 MG CAP.ER.24H PO SCH (20:00)
[2020-11-02 02:28] LABS: Hematocrit 34.6 % (37.5-50.1); Hemoglobin 11.5 g/dL (12.9-16.9); Mean Corpuscular HGB Conc 33.2 g/dL (31.6-35.5); Mean Corpuscular Volume 93.3 fL (83.0-100.0); Mean Platelet Volume 10.9 fL (9.4-12.4); Platelet Count 265 K/mcL (140-400); Red Blood Count 3.71 M/mcL (4.19-5.50); White Blood Count 10.4 K/mcL (4.3-11.1)
[2020-11-02 02:49] LABS: BUN/Creatinine Ratio 14 (6-26); Blood Urea Nitrogen 14 mg/dL (8-23); Carbon Dioxide 28 mEq/L (23-29); Chloride 99 mEq/L (98-107); Glucose 107 mg/dL (70-105); Osmolality,Calculated 281 (280-300); Potassium 3.4 mEq/L (3.5-5.1); Sodium 135 mEq/L (136-145); eGFR For African Americans > 60 (> 60); eGFR For Non-African Americans > 60 (> 60)
[2020-11-02 03:06] LABS: Calcium 8.5 mg/dL (8.6-10.3)
[2020-11-02] MEDS: Doxycycline 100 MG in 0.9 % Sodium Chloride Mini Bag 100 ML IVPB SCH (05:36)
[2020-11-02] MEDS: Piperacillin/Tazobactam 3.375 GM in 0.9 % Sodium Chloride Mini Bag 100 ML IVPB SCH (10:11)
[2020-11-02] MEDS: Apixaban 5 MG TABLET PO SCH (10:12)
[2020-11-02] MEDS: Aspirin Enteric Coated 81 MG Tablet PO SCH (10:12)
[2020-11-02] MEDS: carvediloL 6.25 MG TABLET PO SCH (10:13)
[2020-11-02] MEDS: Furosemide 40 MG TABLET PO SCH (10:13)
[2020-11-02] MEDS: Sennosides/Docusate Sodium TABLET PO SCH (10:14)
[2020-11-02] MEDS: Simethicone 80 MG TAB.CHEW PO PRN (10:18)
[2020-11-02 14:31] VITALS: BP 113/64; PULSE 69; TEMP 98.3; O2SAT 95
== END 2020-11-02 16:42 | disposition home or self-care (01) | DRG 444 ==
LOC: 3ANU 10:48 → EMEROOARM 10:48 → SUATTDRO 15:43 → 3ANU 16:11 → SUATTDRO 10-28 18:00
PROVIDERS: ADMIT Student in an Organized Health Care Education/Training Program; ATTEND Internal Medicine

== ENCOUNTER 2021-09-19 11:00 | Inpatient (IN) ==
[2021-12-18] MEDS ORDERED: Naloxone 0.4 MG/ML INJ IVP PRN (12:21)
[2021-12-18 13:12] LABS: Hematocrit 38.9 % (37.5-50.1); Hemoglobin 12.7 g/dL (12.9-16.9); Mean Corpuscular HGB Conc 32.6 g/dL (31.6-35.5); Mean Corpuscular Hemoglobin 30.5 pg (28.0-33.3); Mean Corpuscular Volume 93.3 fL (83.0-100.0); Mean Platelet Volume 10.5 fL (9.4-12.4); Platelet Count 248 K/mcL (140-400); Red Blood Count 4.17 M/mcL (4.19-5.50); Red Cell Distribution Width 13.2 % (11.5-14.5); White Blood Count 9.7 K/mcL (4.3-11.1)
[2021-12-18 13:43] LABS: Calcium 9.2 mg/dL (8.6-10.3); Magnesium 1.8 mg/dL (1.6-2.6); Potassium 3.7 mEq/L (3.5-5.1)
[2021-12-18] MEDS ORDERED: Nitroglycerin 0.4 MG TAB.SUBL SL PRN (14:59)
[2021-12-18] MEDS: carvediloL 6.25 MG TABLET PO SCH (16:30)
[2021-12-18] MEDS: Apixaban 5 MG TABLET PO SCH (23:00)
[2021-12-18] MEDS: Venlafaxine XR (24 HR) 75 MG CAP.ER.24H PO SCH (23:11)
[2021-12-19] MEDS: carvediloL 6.25 MG TABLET PO SCH (09:01)
[2021-12-19] MEDS: Furosemide 40 MG TABLET PO SCH (09:02)
[2021-12-19] MEDS: Apixaban 5 MG TABLET PO SCH ×2 (09:02→21:47)
[2021-12-19] MEDS: Multivit/Ca/Min/Fe/FA 1 TAB TABLET PO SCH (09:02)
[2021-12-19] MEDS: Aspirin Enteric Coated 81 MG Tablet PO SCH (09:03)
[2021-12-19] MEDS: amLODIPine 5 MG TABLET PO SCH (15:56)
[2021-12-19] MEDS: Venlafaxine XR (24 HR) 75 MG CAP.ER.24H PO SCH (21:47)
[2021-12-20] MEDS: Multivit/Ca/Min/Fe/FA 1 TAB TABLET PO SCH (09:24)
[2021-12-20] MEDS: Aspirin Enteric Coated 81 MG Tablet PO SCH (09:24)
[2021-12-20] MEDS: Apixaban 5 MG TABLET PO SCH (09:25)
[2021-12-20] MEDS: Furosemide 40 MG TABLET PO SCH (09:26)
[2021-12-20] MEDS: amLODIPine 5 MG TABLET PO SCH (09:32)
[2021-12-20] MEDS: Venlafaxine XR (24 HR) 75 MG CAP.ER.24H PO SCH (20:51)
[2021-12-21 04:57] LABS: INR 1.2
[2021-12-21 05:15] LABS: Calcium 9.3 mg/dL (8.6-10.3); Potassium 3.6 mEq/L (3.5-5.1)
[2021-12-21] MEDS: Aspirin Enteric Coated 81 MG Tablet PO SCH (09:36)
[2021-12-21] MEDS: Multivit/Ca/Min/Fe/FA 1 TAB TABLET PO SCH (09:37)
[2021-12-21] MEDS: amLODIPine 5 MG TABLET PO SCH (09:37)
[2021-12-21] MEDS: Furosemide 40 MG TABLET PO SCH (09:37)
[2021-12-21] MEDS ORDERED: Clindamycin 600 MG/50 ML 1,200 MG/100 ML IV.SOLN IVPB ONE (12:30)
[2021-12-21] MEDS ORDERED: 0.9 % Sodium Chloride 500 ML ONE ×2 (12:30→13:23)
[2021-12-21] MEDS ORDERED: *HR* FentaNYL (PF) 100 MCG/2 ML VIAL ONE (13:17)
[2021-12-21] MEDS ORDERED: *HR* Midazolam HCl 2 MG/2 ML VIAL ONE ×2 (13:18→13:44)
[2021-12-21] MEDS ORDERED: Acetaminophen 325 MG TABLET PO PRN (14:30)
[2021-12-21] MEDS ORDERED: *HR* OxyCODONE Immed Rel 5 MG TABLET PO PRN (14:30)
[2021-12-21] MEDS: carvediloL 6.25 MG TABLET PO SCH (17:51)
[2021-12-21] MEDS ORDERED: Clindamycin 900 MG/50 ML 900 MG/50 ML IV.SOLN IVPB SCH (18:00)
[2021-12-21] MEDS: Venlafaxine XR (24 HR) 75 MG CAP.ER.24H PO SCH (20:21)
[2021-12-22 05:21] LABS: BUN/Creatinine Ratio 17 (6-26); Blood Urea Nitrogen 17 mg/dL (8-23); Carbon Dioxide 28 mEq/L (23-29); Chloride 101 mEq/L (98-107); Potassium 3.8 mEq/L (3.5-5.1); Sodium 135 mEq/L (136-145)
[2021-12-22 07:10] VITALS: BP 130/78; PULSE 64; TEMP 98.2; O2SAT 96
[2021-12-22] MEDS: Furosemide 40 MG TABLET PO SCH (09:34)
[2021-12-22] MEDS: Multivit/Ca/Min/Fe/FA 1 TAB TABLET PO SCH (09:35)
[2021-12-22] MEDS: Aspirin Enteric Coated 81 MG Tablet PO SCH (09:35)
[2021-12-22] MEDS: carvediloL 6.25 MG TABLET PO SCH (09:37)
== END 2021-12-22 13:12 | disposition home or self-care (01) | DRG 244 ==
LOC: 3BNU
PROVIDERS: ADMIT Internal Medicine Clinical Cardiac Electrophysiology; ATTEND Internal Medicine Clinical Cardiac Electrophysiology